=== PATIENT | female | born 1995 | race Caucasian/White ===

== ENCOUNTER 2021-05-20 18:55 | Emergency (ER) | payer OTHER ==
[~2021-05-20] VITALS: Ht 172.7 cm; Wt 91.1 kg
[2021-05-20] MEDS ORDERED: FISH1000 PO (19:10)
[2021-05-20] MEDS ORDERED: SYNT137T7 PO (19:10)
[2021-05-20] MEDS ORDERED: PRENTAB53 PO (19:10)
[2021-05-20] MEDS ORDERED: PEPC1TAB5 PO (19:10)
[2021-05-20] MEDS ORDERED: METOCLOPRAMIDE INJ 10MG/2ML VIAL (J2765 PER 1) IV ONE (19:35)
[2021-05-20] MEDS ORDERED: NS 1,000 ML IV ONE (19:35)
[2021-05-20] MEDS ORDERED: ACETAMINOPHEN TAB 650MG DOSE (2X325MG) PO ONE (19:40)
[2021-05-20 21:08] LABS: BASO % 0.2 % (0.0-1.0); EOS # 0.1 10^3/uL (0.0-0.5); EOS % 1.1 % (0.0-3.0); HEMATOCRIT 38.2 % (36.0-47.0); HEMOGLOBIN 13.1 g/dl (12.0-15.5); LYMPH # 1.9 10^3/uL (1.5-5.0); LYMPH % 23.5 % (24.0-44.0); MEAN CORPUSCULAR HGB CONC 34.3 g/dl (32.0-36.5); MEAN CORPUSCULAR VOLUME 90.5 fl (80.0-96.0); MONO # 0.4 10^3/uL (0.0-0.8); MONO % 4.4 % (2.0-8.0); NEUTROPHILS # 5.8 10^3/uL (1.5-8.5); NEUTROPHILS % 70.6 % (36.0-66.0); PLATELET COUNT, AUTOMATED 260 10^3/uL (150-450); RED BLOOD COUNT 4.22 10^6/uL (4.00-5.40); WHITE BLOOD COUNT 8.3 10^3/uL (4.0-10.0)
[2021-05-20 21:45] LABS: ALBUMIN 3.4 GM/DL (3.2-5.2); ALT/SGPT 21 U/L (12-78); BILIRUBIN,DIRECT < 0.1 MG/DL (0.0-0.2); BILIRUBIN,TOTAL 0.3 MG/DL (0.2-1.0); BLOOD UREA NITROGEN 13 MG/DL (7-18); CALCIUM LEVEL 8.9 MG/DL (8.5-10.1); CARBON DIOXIDE LEVEL 24 MEQ/L (21-32); CHLORIDE LEVEL 109 MEQ/L (98-107); CREATININE FOR GFR 0.55 MG/DL (0.55-1.30); GLOMERULAR FILTRATION RATE > 60.0 (>60); GLUCOSE, FASTING 77 MG/DL (70-100); HCG, SERUM QUANTITATIVE 95138 MIU/ML; LIPASE 124 U/L (73-393); POTASSIUM SERUM 3.8 MEQ/L (3.5-5.1); SODIUM LEVEL 141 MEQ/L (136-145); TOTAL PROTEIN 6.7 GM/DL (6.4-8.2)
--- NOTE | 2021-05-20 23:37 | REPVR ---
PROCEDURE INFORMATION: Exam: US First Trimester, Transabdominal and US Duplex Artery and Vein, Ovaries, Complete Exam date and time: 05/20/2021 10:15 PM Age: 25 years old Clinical indication: complicated by abdominal or pelvic pain; Generalized abdominal pain; First trimester; Gestational age or lmp: 10w 4d; ; Additional info: Preg discomfort eval for iup TECHNIQUE: Imaging protocol: Real-time transabdominal obstetrical ultrasound of the maternal pelvis and a first trimester , less than 14 weeks 0 days, with image documentation. Real-time duplex ultrasound scan of the arterial and venous flow of the ovaries with B-mode, color Doppler flow and spectral waveform analysis, complete duplex. COMPARISON: No relevant prior studies available. FINDINGS: UTERUS: The uterus is anteverted measuring approximately 12.4 x 8.1 by 9 cm. Uterine echotexture is within normal limits. No evidence of a fibroid is seen. The cervix has an approximate length of 3.5 cm. No endocervical fluid is seen. ENDOMETRIAL COMPLEX: The endometrial complex is by a gestational sac with unremarkable appearing surrounding decidual reaction and no evidence of a perigestational hemorrhage. The gestational sac is located within the uppermost uterine body. The gestational sac measures approximately 40 x 26 by 66 mm. Mean sac diameter is not calculated on the images provided. There is a single intrauterine . The pole has a crown-rump length average of 4.4 cm, corresponding to an estimated gestational age of 11 weeks and 2 days (range of 10 weeks 3 days to 12 weeks 1 day), falling within the 84th percentile. The amnion appears nearly fused with the outer chorion. cardiac activity is noted at 155 bpm. The yolk sac is visualized with an outer diameter of approximately 6 mm. Estimated date of delivery based upon sonographic measurements is December 07, 2021. CUL DE SAC: No free fluid is seen within the visualized pelvis. RIGHT OVARY/ADNEXA: The right ovary measures 3.6 by 3.2 x 2.2 cm. A few tiny peripheral follicles are noted. Color flow is seen from within the right ovary. Arterial and venous spectral waveforms are noted from within the right ovary. Resistive index is 0.6. LEFT OVARY/ADNEXA: The left ovary measures 3.6 x 3.9 x 2.1 cm. There is slight heterogeneity of left ovarian echotexture. Color flow is not seen within the left ovary on the images provided, likely secondary to technical limitation of the scan. Poorly visualized venous spectral waveforms are noted from within the left ovary. Arterial waveforms have been obtained, however the Doppler gate for measurement appears to be outside of the ovary and not from within the ovary itself. Arterial flow to the left ovary cannot be confirmed on the images provided. If there is high suspicion for ovarian torsion, consider repeat attempts or endovaginal attempt at spectral evaluation of the left ovary. Based upon imaging appearance, there is no secondary evidence of ovarian torsion. IMPRESSION: Single early intrauterine of approximately 11 weeks and 2 days gestation with cardiac activity at 155 bpm. No subchorionic hemorrhage is seen. No free fluid is seen within the pelvis. No funneling or fluid seen within the cervix. No evidence of right ovarian torsion. Only faint venous spectral waveforms are seen from within the left ovary. This may be technical artifact, however if there are symptoms related to the left ovary/adnexa and there is suspicion of torsion, consider repeat evaluation as discussed above. Electronically signed by: Jhonny Herrera On 05/20/2021 23:37:03 PM
[2021-05-21 01:20] VITALS: BP 126/64
--- NOTE | 2021-05-21 20:31 | ECGEPIP ---
[facility] - ED Test Date: 2021-05-20 Pat Name: AYLEEN HUA Department: Room: - Gender: Female Disintegrator: : 1995 Requested By: MUKUL Acosta Order Number: [id number] Reading MD: Ayleen Vidales Measurements Intervals Stanley Rate: 70 P: 32 KS: 186 QRS: 17 QRSD: 90 T: 23 QT: 390 QTc: 421 Interpretive Statements Normal sinus rhythm No prior Electronically Signed on 05-21-2021 20:30:51 EDT by Ayleen Vidales
== END 2021-05-21 01:23 | disposition home or self-care (01) ==
LOC: M ED 18:55
DX: O21.9 Vomiting of pregnancy, unspecified (principal); O13.1 Gestational [pregnancy-induced] hypertension without significant proteinuria, first trimester; O99.281 Endocrine, nutritional and metabolic diseases complicating pregnancy, first trimester; E07.9 Disorder of thyroid, unspecified; E78.9 Disorder of lipoprotein metabolism, unspecified; O99.341 Other mental disorders complicating pregnancy, first trimester; F33.9 Major depressive disorder, recurrent, unspecified; F41.9 Anxiety disorder, unspecified; Z79.899 Other long term (current) drug therapy; Z79.890 Hormone replacement therapy; Z3A.11 11 weeks gestation of pregnancy
CPT/HCPCS: 76801; 80048; 80076; 83690; 84702; 85025; 86850; 86900; 86901; 93005; 93976; 96361; 96374; 99284; J2765

== ENCOUNTER → 2021-08-02 | Outpatient (CLI) | payer OTHER ==
[~2021-08-02] MED LIST: FISH1000 PO; PEPC1TAB5 PO; PRENTAB53 PO; SYNT137T7 PO
--- NOTE | 2021-08-02 14:49 | REP ---
INDICATION: PREG, ANATOMY COMPARISON: 05/20/2021 TECHNIQUE: Transabdominal obstetrical ultrasound with color Doppler evaluation. FINDINGS: Examination demonstrates a single live intrauterine in breech presentation. motion is identified by technologist. Placenta is noted posterior/fundal and grade 0 without evidence for placenta previa or abruption. Amniotic fluid volume is normal. Cervix measures 5.3 cm in length and appears closed.. Selected gestational age: 21 weeks 1 day with SERA 12/12/2021. Gestational age by current measurements 20 weeks 6 days with SERA 12/14/2021. FHR equals 144 beats per minute. BPD: 5.1 cm at 21 weeks 3 days HC: 18.2 cm at 20 weeks 4 days AC: 15.3 cm at 20 weeks 3 days FL: 3.4 cm at 20 weeks 6 days HL: 3.3 cm at 21 weeks 0 days HC/AC: 1.19 Estimated weight 369 grams (24thpercentile). Anatomical assessment demonstrates normal structures including cranium, choroid plexus, cavum, cerebellum/posterior fossa, lungs, diaphragm, stomach, cord insertion/three-vessel cord, kidneys/bladder, spine, and extremities. Limited evaluation of the facial profile, nose/lips, and heart/ventricular outflow tracts. IMPRESSION: Single live intrauterine in breech presentation demonstrating appropriate estimated weight and growth. Anatomical limitations as noted above may warrant re-evaluation and follow-up. <Electronically signed by Spencer Dinh > 08/02/21 [id number]
== END ==
LOC: M RAD 13:38
PROVIDERS: ATTEND Obstetrics & Gynecology
DX: Z36.89 Encounter for other specified antenatal screening (principal); Z3A.19 19 weeks gestation of pregnancy

== ENCOUNTER → 2021-10-03 | Outpatient (CLI) | payer OTHER ==
--- NOTE | 2021-10-03 16:01 | REP ---
INDICATION: PREG 30WKS W/ PETEY LEG SWELLING ? DVT COMPARISON: None. TECHNIQUE: Real time compression and duplex Doppler interrogation of the bilateral lower extremity deep venous system is performed. Compression ultrasound is performed of the bilateral peroneal and posterior tibial veins. FINDINGS: Bilaterally, the common femoral, superficial femoral and popliteal veins are fully compressible with transducer pressure and demonstrate normal spontaneous and phasic flow, without evidence of deep venous thrombosis. No thrombus is seen in the bilateral visualized portions of the peroneal and posterior tibial veins. IMPRESSION: No evidence of deep venous thrombosis of the bilateral lower extremity femoral popliteal venous system. <Electronically signed by Cricket Teixeira > 10/03/21 [id number]
== END ==
LOC: M RAD 15:20
PROVIDERS: ATTEND Obstetrics & Gynecology
DX: Z36.89 Encounter for other specified antenatal screening (principal); Z3A.30 30 weeks gestation of pregnancy

== ENCOUNTER → 2021-10-05 | Outpatient (CLI) | payer OTHER ==
--- NOTE | 2021-10-06 13:57 | ECHO ---
ECHOCARDIOGRAM DATE OF PROCEDURE: 10/05/2021 Age: 25 Gender: Female Height: 68 inches Weight: 212 pounds Body surface area: 2.1 m2 Outpatient. REFERRING PHYSICIAN: Jasiel Banda D.O. INDICATION: Edema MEASUREMENTS: 2D Measurements: RV - 2.8 cm LV - 4.6 cm Septum 0.9 cm Posterior wall 0.9 cm Aortic root 3.0 cm LA - 3.6 cm LVEF 65% DOPPLER MEASUREMENTS: AV - 1.36 m/s LVOT - 1.0 m/s LVOT diameter 2.0 cm MV-E 56, A 66, E/A ratio 0.8 Early mitral deceleration time 200 msec E prime medial. 7.2 A prime medial 7.4 E prime lateral 14.6 PV - 0.8 m/s Pulmonary artery acceleration time 130 msec RVSP 24 mmHg IVC - 1.5 cm COMMENTS: Normal sinus rhythm without intraventricular conduction disturbance. M-mode and 2-dimensional echocardiography was performed with pulse, continuous wave, color flow, and tissue Doppler studies. Normal left ventricular hypertrophy size, wall thickness, and wall motion. Normal left atrial size and Doppler assessment of LV diastolic function and estimated mean left atrial pressure. Normal right heart chamber sizes and motion and estimated pulmonary arterial pressure. Normal IVC size against an elevated central venous pressure. Normal aortic dimensions. Normal-appearing aortic valve and normal function. Normal-appearing mitral valve with normal leaflet excursion and no posterior systolic buckling and only very mild trace insufficiency. Normal-appearing tricuspid valve with very mild insufficiency. No apparent intracardiac mass or pericardial effusion.
== END ==
LOC: M CARPUL 13:17
PROVIDERS: ATTEND Obstetrics & Gynecology
DX: R60.0 Localized edema (principal)

== ENCOUNTER 2021-11-15 12:15 | Outpatient (CLI) | payer OTHER ==
[2021-11-15 12:33] VITALS: BP 106/59
== END 2021-11-15 13:45 | disposition home or self-care (01) ==
LOC: M LDO 12:15
PROVIDERS: ATTEND Registered Nurse
DX: O10.013 Pre-existing essential hypertension complicating pregnancy, third trimester (principal); O24.415 Gestational diabetes mellitus in pregnancy, controlled by oral hypoglycemic drugs; Z3A.36 36 weeks gestation of pregnancy; O98.513 Other viral diseases complicating pregnancy, third trimester; U07.1 COVID-19
CPT/HCPCS: 59025; 76815; 76819; 76820; G0378; G0463

== ENCOUNTER → 2021-11-22 | Outpatient (REF) | payer OTHER | LOC: M LAB REF 14:57 | PROVIDERS: ATTEND Advanced Practice Midwife | DX: Z86.14 Personal history of Methicillin resistant Staphylococcus aureus infection (principal) ==

== ENCOUNTER 2021-12-01 20:36 | Inpatient (IN) | payer OTHER ==
[~2021-12-01] VITALS: Ht 172.7 cm; Wt 101.6 kg
[2021-12-01] MEDS ORDERED: OXYTOCIN DRIP 30 UNITS in IV 1 EA IV PRN (20:55)
[2021-12-01] MEDS ORDERED: METHYLERGONOVINE MALEATE 0.2 MG/ML VIAL (J2210) IM PRN (20:55)
[2021-12-01] MEDS ORDERED: LIDOCAINE 1% MDV 20ML VIAL INFIL PRN (20:55)
[2021-12-01] MEDS ORDERED: ACYC1CAP20 PO (20:59)
[2021-12-01] MEDS ORDERED: INSUNSD SC (20:59)
[2021-12-01] MEDS ORDERED: BENA25CA4 PO (20:59)
[2021-12-01] MEDS ORDERED: HumaLOG INSULIN (NovoLOG) PER UNIT SC SCH (21:00)
[2021-12-01] MEDS ORDERED: HOME MED LIST COMPLETE! XX SCH (21:00)
[2021-12-01] MEDS ORDERED: GLUCOSE 4GM CHEW TABLET PO PRN ×2 (21:00)
[2021-12-01] MEDS ORDERED: GLUCAGON INJ 1MG VIAL SC PRN ×2 (21:00)
[2021-12-01] MEDS ORDERED: DEXTROSE 50% 50 ML SYRINGE IV PRN ×2 (21:00)
[2021-12-01 21:04] VITALS: BP 143/64
[2021-12-01 21:29] LABS: HEMATOCRIT 28.7 % (36.0-47.0); HEMOGLOBIN 8.9 g/dl (12.0-15.5); MEAN CORPUSCULAR HEMOGLOBIN 24.9 pg (27.0-33.0); MEAN CORPUSCULAR VOLUME 80.2 fl (80.0-96.0); PLATELET COUNT, AUTOMATED 262 10^3/uL (150-450); RED BLOOD COUNT 3.58 10^6/uL (4.00-5.40); WHITE BLOOD COUNT 6.2 10^3/uL (4.0-10.0)
[2021-12-01] MEDS: HumaLOG INSULIN (NovoLOG) PER UNIT SC SCH (21:51)
[2021-12-01] MEDS ORDERED: PROMETHAZINE INJ 25 MG/ML VIAL (J2550) IV PRN (22:15)
[2021-12-01] MEDS: miSOPROStol 50MCG 1/2 TABLET SL SCH (22:25)
[2021-12-01 22:28] VITALS: BP 137/65
[2021-12-01 23:04] LABS: TOTAL PROTEIN,RANDOM URINE 23.8 MG/DL (0.0-12.0)
[2021-12-02] VITALS (38 sets, daily range): BP systolic 97–152; BP diastolic 51–82
[2021-12-02 00:01] LABS: ALT/SGPT 13 U/L (12-78); CREATININE FOR GFR 0.65 MG/DL (0.55-1.30); GLOMERULAR FILTRATION RATE > 60.0 (>60); LDH LACTATE DEHYDROGENASE 217 U/L (84-246); URIC ACID 5.4 MG/DL (2.6-6.0)
[2021-12-02] MEDS: miSOPROStol 50MCG 1/2 TABLET SL SCH ×2 (04:29→06:30)
[2021-12-02 04:46] LABS: BILIRUBIN,TOTAL < 0.1 MG/DL (0.2-1.0)
[2021-12-02] MEDS ORDERED: LEVOTHYROXINE 112MCG TABLET (0.112MG) PO SCH (06:00)
[2021-12-02] MEDS: LEVOTHYROXINE 75MCG TABLET (0.075MG) PO SCH (06:07)
[2021-12-02] MEDS: LEVOTHYROXINE 100MCG TABLET (0.1MG) PO SCH (06:07)
[2021-12-02] MEDS: BUTORPHANOL 2 MG/ML INJ (J0595) IV PRN (09:42)
[2021-12-02] MEDS ORDERED: LR 1,000 ML IV SCH (12:20)
[2021-12-02] MEDS ORDERED: OXYTOCIN DRIP 30 UNITS in IV 1 EA IV SCH ×2 (12:20→21:05)
[2021-12-02] MEDS: HumaLOG INSULIN (NovoLOG) PER UNIT SC SCH (15:16)
[2021-12-02] MEDS ORDERED: FENTANYL 2MCG/ML ROPIVACAINE 0.2% IN 0.9% NACL 100ML IVBAG As Ordered ONE (16:44)
[2021-12-02] MEDS ORDERED: NALOXONE INJ 0.4MG/1ML VIAL (J2310 PER 1MG) IV PRN (17:10)
[2021-12-02] MEDS ORDERED: diphenhydrAMINE 50MG/ML VIAL (J1200) IV PRN (17:10)
[2021-12-02] MEDS ORDERED: EPIDURAL/PCA KEYS XX PRN (17:10)
[2021-12-02] MEDS ORDERED: ONDANSETRON 4MG/2ML VIAL IV PRN (17:10)
[2021-12-02] MEDS ORDERED: REFRIGERATOR IV KEYS XX PRN (17:10)
[2021-12-02] MEDS ORDERED: ePHEDrine SULFATE 25 MG/5 ML(5MG/ML) SYRINGE IV PRN (17:10)
[2021-12-02] MEDS ORDERED: LACTATED RINGER'S 1000 ML IV PRN (17:10)
[2021-12-02] MEDS ORDERED: EPIDURAL COMMENT XX SCH (17:10)
[2021-12-02] MEDS: FENTANYL/ROPIVACAINE/NACL BAG 100 ML EPIDURAL SCH (17:42)
[2021-12-02] MEDS ORDERED: MEASLES,MUMPS,RUBELLA VACCINE INJ (MMR-II) (90707) SC SCH (21:05)
[2021-12-02] MEDS ORDERED: RHOGAM 300 MCG (1500 IU) INJ (J2790) IM SCH (21:05)
[2021-12-02] MEDS ORDERED: PROMETHAZINE 25 MG TAB PO PRN (21:05)
[2021-12-02] MEDS ORDERED: DOCUSATE SODIUM 100MG CAPSULE PO PRN (21:05)
[2021-12-02] MEDS ORDERED: DIBUCAINE 1% OINTMENT 30GM TOP PRN (21:05)
[2021-12-02] MEDS ORDERED: IBUPROFEN 600MG TAB PO PRN (21:05)
[2021-12-03] MEDS: ACETAMINOPHEN 500 MG TAB PO PRN (00:16)
[2021-12-03] MEDS: BUTORPHANOL 2 MG/ML INJ (J0595) IV PRN (01:16)
[2021-12-03] MEDS: FENTANYL/ROPIVACAINE/NACL BAG 100 ML EPIDURAL SCH (02:58)
[2021-12-03] MEDS: IBUPROFEN 800 MG TAB PO PRN (03:45)
[2021-12-03 05:55] VITALS: BP 130/68
[2021-12-03] MEDS: LEVOTHYROXINE 100MCG TABLET (0.1MG) PO SCH (07:50)
[2021-12-03] MEDS: LEVOTHYROXINE 75MCG TABLET (0.075MG) PO SCH (07:50)
[2021-12-03] MEDS: PRENATAL VITAMINS CHEWABLE TABLET PO SCH (08:14)
[2021-12-03] MEDS: ACETAMINOPHEN TAB 650MG DOSE (2X325MG) PO PRN (10:34)
[2021-12-03 17:57] VITALS: BP 132/66
[2021-12-04] MEDS ORDERED: ACET1TAB55 PO (05:31)
[2021-12-04] MEDS ORDERED: IBUP80TA PO (05:31)
[2021-12-04] MEDS ORDERED: COLA100C5 PO (05:31)
[2021-12-04 05:55] VITALS: BP 134/72
[2021-12-04] MEDS: LEVOTHYROXINE 100MCG TABLET (0.1MG) PO SCH (06:48)
[2021-12-04] MEDS: LEVOTHYROXINE 75MCG TABLET (0.075MG) PO SCH (06:48)
[2021-12-04] MEDS: PRENATAL VITAMINS CHEWABLE TABLET PO SCH (08:34)
[2021-12-04] MEDS: ACETAMINOPHEN TAB 650MG DOSE (2X325MG) PO PRN (08:39)
[2021-12-04] MEDS: ACETAMINOPHEN 500 MG TAB PO PRN (14:52)
[2021-12-04] MEDS: IBUPROFEN 800 MG TAB PO PRN (17:16)
== END 2021-12-04 17:45 | disposition home or self-care (01) | DRG 807 ==
LOC: M LDI 20:36 → M OBS 12-03 01:12
PROVIDERS: ADMIT Obstetrics & Gynecology; ATTEND Obstetrics & Gynecology
PROC: 3E0P7GC Introduction of Other Therapeutic Substance into Female Reproductive, Via Natural or Artificial Opening (ICD-10-PCS; 2021-12-01)
PROC: 10E0XZZ Delivery of Products of Conception, External Approach (ICD-10-PCS; principal; 2021-12-02)
PROC: 10907ZC Drainage of Amniotic Fluid, Therapeutic from Products of Conception, Via Natural or Artificial Opening (ICD-10-PCS; 2021-12-02)
PROC: 0HQ9XZZ Repair Perineum Skin, External Approach (ICD-10-PCS; 2021-12-02)
DX: O10.02 Pre-existing essential hypertension complicating childbirth (principal); Z37.0 Single live birth; Z3A.38 38 weeks gestation of pregnancy; O24.424 Gestational diabetes mellitus in childbirth, insulin controlled; O99.284 Endocrine, nutritional and metabolic diseases complicating childbirth; E03.9 Hypothyroidism, unspecified; O99.214 Obesity complicating childbirth; E66.9 Obesity, unspecified; O69.81X0 Labor and delivery complicated by cord around neck, without compression, not applicable or unspecified; O70.0 First degree perineal laceration during delivery